=== PATIENT | female | born 1945 | race Caucasian/White ===

== ENCOUNTER 2018-03-19 21:41 | Emergency (ER) | payer OTHER ==
[~2018-03-19] VITALS: Ht 152.4 cm; Wt 81.6 kg
[2018-03-19] MEDS ORDERED: FORTAMET1000 MG (21:44)
[2018-03-19] MEDS ORDERED: LOSARTAN POTASS50 MG (21:44)
[2018-03-19] MEDS ORDERED: SYNTHROID75 MCG (21:44)
[2018-03-19] MEDS ORDERED: AMLODIPINE BESYL5 MG (21:44)
[2018-03-19] MEDS ORDERED: ZOLOFT100 MG (21:45)
[2018-03-19] MEDS ORDERED: ATORVASTATIN CA40 MG (21:45)
[2018-03-19] MEDS ORDERED: LANTUS SOL100 UNIT/1 (21:45)
[2018-03-19] MEDS ORDERED: DEXILANT30 MG (21:45)
[2018-03-19] MEDS ORDERED: RAZADYNE4 MG (21:45)
== END 2018-03-19 23:38 | disposition home or self-care (01) ==
LOC: ER 21:41
DX: S02.32XA Fracture of orbital floor, left side, initial encounter for closed fracture (principal); S02.40DA Maxillary fracture, left side, initial encounter for closed fracture; W18.09XA Striking against other object with subsequent fall, initial encounter; Y93.89 Activity, other specified; Y92.018 Other place in single-family (private) house as the place of occurrence of the external cause; Y99.8 Other external cause status

== ENCOUNTER → 2020-04-21 | Outpatient (CLI) | payer OTHER ==
[~2020-04-21] MED LIST: AMLODIPINE BESYL5 MG; ATORVASTATIN CA40 MG; CHILDREN'S ASPI81 MG; DEXILANT30 MG; FORTAMET1000 MG; LANTUS SOL100 UNIT/1; LOSARTAN POTASS50 MG; RAZADYNE4 MG; SYNTHROID75 MCG; ZOLOFT100 MG
== END | disposition home or self-care (01) ==
LOC: PPH VACUNA
PROVIDERS: ATTEND Emergency Medicine Pediatric Emergency Medicine
DX: Z23 Encounter for immunization (principal)

== ENCOUNTER 2020-05-31 12:22 | Emergency (ER) | payer OTHER ==
[~2020-05-31] VITALS: Ht 154.9 cm; Wt 74.8 kg
[~2020-05-31 12:22] MED LIST changes: -CHILDREN'S ASPI81 MG
[2020-05-31] MEDS ORDERED: CHILDREN'S ASPI81 MG (12:52)
== END 2020-05-31 18:45 | disposition home or self-care (01) ==
LOC: ER 12:22 → CPU-OBS 13:08 → ER 13:08
DX: R07.89 Other chest pain (principal); Z03.818 Encounter for observation for suspected exposure to other biological agents ruled out